=== PATIENT | female | born 1990 | race Two or more races ===

== ENCOUNTER 2017-02-14 08:39 | Emergency (ER) | payer MEDICAID, OTHER ==
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
[2017-02-14 10:48] VITALS: BP 105/65
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
== END 2017-02-14 11:11 | disposition home or self-care (01) ==
LOC: ER 08:39
DX: S06.0X9A Concussion with loss of consciousness of unspecified duration, initial encounter (principal); R51 Headache; V87.7XXA Person injured in collision between other specified motor vehicles (traffic), initial encounter
CPT/HCPCS: 70450; 99284

== ENCOUNTER → 2017-07-11 | Outpatient (CLI) | payer MEDICAID ==
[2017-07-11 22:17] LABS: CHLAM PCR NOT DETECTED (NOT DETECT)
== END ==
LOC: LAB 19:47
PROVIDERS: ATTEND Nurse Practitioner Acute Care
DX: N89.8 Other specified noninflammatory disorders of vagina (principal)
CPT/HCPCS: 87210; 87491; 87591

== ENCOUNTER → 2017-07-16 | Outpatient (CLI) | payer MEDICAID | LOC: LAB 20:54 | PROVIDERS: ATTEND Nurse Practitioner Acute Care | DX: N90.89 Other specified noninflammatory disorders of vulva and perineum (principal) | CPT/HCPCS: 87250 ==

== ENCOUNTER 2017-12-19 03:20 | Emergency (ER) | payer SELFPAY ==
[2017-12-19] MEDS ORDERED: KETOROLAC TROMETHAMINE INJ/PF 30 MG/1 ML SDV IV ONE (03:47)
[2017-12-19] MEDS ORDERED: ONDANSETRON HCL INJ/PF 4 MG/2 ML SDV IV ONE (03:47)
[2017-12-19] MEDS ORDERED: NORMAL SALINE 1000 ML 1,000 ML IV ONE (03:47)
[2017-12-19] MEDS ORDERED: KETOROLAC TROMETHAMINE INJ/PF 30 MG/1 ML SDV ONE (03:58)
[2017-12-19] MEDS ORDERED: ONDANSETRON HCL INJ/PF 4 MG/2 ML SDV ONE (03:59)
[2017-12-19 04:51] LABS: ALANINE AMINOTRANSFERASE 18 U/L (9-52); ALBUMIN 4.6 g/dL (3.5-5.0); ALKALINE PHOSPHATASE 73 U/L (38-126); ANION GAP 14 (5-19); ASPARTATE AMINO TRANSFERASE 14 U/L (14-36); BILIRUBIN,DIRECT 0.3 mg/dL (0.0-0.4); BILIRUBIN,TOTAL 0.4 mg/dL (0.2-1.3); BLOOD UREA NITROGEN 11 mg/dL (7-20); CARBON DIOXIDE 29 mmol/L (22-30); CHLORIDE 102 mmol/L (98-107); GLUCOSE 90 mg/dL (75-110); POTASSIUM 4.3 mmol/L (3.6-5.0); SODIUM 144.6 mmol/L (137-145); TOTAL PROTEIN 7.8 g/dL (6.3-8.2)
--- NOTE | 2017-12-19 07:19 | ER Document Report ---
ED General - General Chief Complaint: Abdominal Pain Stated Complaint: ABDOMINAL PAIN Time Seen by Provider: 12/19/17 03:45 Mode of Arrival: Ambulatory Information source: Patient Notes: Patient is a 27-year-old female who presents with complaint of right lower quadrant pain and pelvic pain. Patient reports that she has a history of bilateral ovarian cysts with a large cyst on the right side. Patient reports that she had pain for the last day now that is worsened overnight. Patient reports that she has had nausea without vomiting. Patient reports that she sees Dr. Mcgee for this. Patient reports a past medical history of endometriosis. TRAVEL OUTSIDE OF THE [place] IN LAST 30 DAYS: No - Related Data Allergies/Adverse Reactions: No Known Allergies Allergy (Verified 02/14/17 08:49) Past Medical History - General Information source: Patient - Social History Smoking Status: Never Smoker Cigarette use (# per day): No Chew tobacco use (# tins/day): No Smoking Education Provided: No Frequency of alcohol use: None Drug Abuse: None Family History: Reviewed & Not Pertinent Renal/ Medical History: Reports: Hx Ovarian Cysts, Other - Endometriosis. Denies: Hx Peritoneal Dialysis Review of Systems - Review of Systems Constitutional: No symptoms reported EENT: No symptoms reported Cardiovascular: No symptoms reported Respiratory: No symptoms reported Gastrointestinal: See HPI Genitourinary: No symptoms reported Female Genitourinary: See HPI Musculoskeletal: No symptoms reported Skin: No symptoms reported Hematologic/Lymphatic: No symptoms reported Neurological/Psychological: No symptoms reported Physical Exam - Vital signs Vitals: Temp Pulse Resp BP Pulse Ox 97.3 F 80 18 127/81 H 99 12/19/17 03:22 12/19/17 03:22 12/19/17 03:22 12/19/17 03:22 12/19/17 03:22 - Notes Notes: PHYSICAL EXAMINATION: GENERAL: Well-appearing, well-nourished and in no acute distress. HEAD: Atraumatic, normocephalic. EYES: Pupils equal round and reactive to light, extraocular movements intact, conjunctiva are normal. ENT: Nares patent, oropharynx clear without exudates. Moist mucous membranes. NECK: Normal range of motion, supple without lymphadenopathy LUNGS: Breath sounds clear to auscultation bilaterally and equal. No wheezes rales or rhonchi. HEART: Regular rate and rhythm without murmurs ABDOMEN: Soft, nontender, nondistended abdomen. No guarding, no rebound. No masses appreciated. Female : Pain to pelvic/suprapubic area. Musculoskeletal: Normal range of motion, no pitting or edema. No cyanosis. NEUROLOGICAL: Cranial nerves grossly intact. Normal speech, normal gait. Normal sensory, motor exams PSYCH: Normal mood, normal affect. SKIN: Warm, Dry, normal turgor, no rashes or lesions noted. Course - Re-evaluation Re-evalutation: Patient with significant past medical history of ovarian cyst. Patient has a copy of a ultrasound report from July 2017 on her phone which shows bilateral ovarian cysts with a large one on the right. Patient CBC is unremarkable, hCG is negative. Ultrasound reveals large right ovarian cyst of 7.67.57.0 cm and left ovarian cyst that is approximately 3.1 cm. No evidence of ovarian torsion or any other acute findings. Patient reports complete relief of pain after administration of Toradol IV. Patient being given some IV fluids and will be discharged home with close follow -up with OB. Patient agrees with this plan and agrees to call Dr. Mcgee later on today to set up an appointment for follow-up. - Vital Signs Vital signs: Temp Pulse Resp BP Pulse Ox 97.3 F 80 18 127/81 H 99 12/19/17 03:22 12/19/17 03:22 12/19/17 03:22 12/19/17 03:22 12/19/17 03:22 Discharge - Discharge Clinical Impression: Ovarian cyst Qualifiers: Laterality: right Qualified Code(s): N83.201 - Unspecified ovarian cyst, right side Condition: Stable Disposition: HOME, SELF-CARE Additional Instructions: Ovarian Cyst Your examination shows the presence of an ovarian cyst. This is a ball of fluid attached to the ovary. Ovarian cysts in women of child-bearing age are usually innocent. However, the cyst may cause pain when it grows or bursts. An innocent ovarian cyst will usually go away by itself. When the cyst becomes painful, you should rest. Pain medication may be required. Some women find a hot water bottle soothing. The pain usually resolves within one or two days. After menopause, an ovarian cyst may mean a tumor, and requires more aggressive evaluation -- usually surgery is recommended to remove or biopsy the cyst. A very large cyst requires evaluation at any age. Most cysts (even the innocent ones) require follow-up examination. Call the doctor or return at any time if the pain increases significantly, if you become faint, or if you experience vaginal bleeding. Prescriptions: Morphine Sulfate [Morphine Ir 15 Mg Tablet] 15 mg PO Q4H PRN #12 tablet PRN Reason: Ondansetron [Zofran Odt 4 mg Tablet] 1 - 2 tab PO Q4H PRN #30 tab.rapdis PRN Reason: For Nausea/Vomiting Referrals: TUSHAR MCGEE MD [EMER[facility]] - Follow up as needed
[2017-12-19 07:22] VITALS: BP 106/65
[2017-12-19 07:24] LABS: APPEARANCE,URINE CLEAR; BILIRUBIN,URINE NEGATIVE (NEGATIVE); COLOR,URINE YELLOW; GLUCOSE, URINE NEGATIVE (NEGATIVE); KETONES,URINE 20 mg/dL (NEGATIVE); LEUKOCYTE ESTERASE,URINE NEGATIVE (NEGATIVE); NITRITE,URINE NEGATIVE (NEGATIVE); PROTEIN,URINE NEGATIVE (NEGATIVE); URINE SPECIFIC GRAVITY 1.015
[2017-12-19 07:25] LABS: ABSOLUTE EOSINOPHILS # (AUTO) 0.1 10^3/uL (0.0-0.6); ABSOLUTE LYMPHOCYTES (AUTO) 1.9 10^3/uL (0.5-4.7); ABSOLUTE MONOCYTES (AUTO) 0.6 10^3/uL (0.1-1.4); ABSOLUTE NEUT (AUTO) 6.2 10^3/uL (1.7-8.2); BASOPHILS % (AUTO) 0.5 % (0-2); EOSINOPHILS % (AUTO) 0.9 % (0-6); HEMOGLOBIN 11.9 g/dL (12.0-15.5); LYMPHOCYTES % (AUTO) 21.5 % (13-45); MEAN CORPUSCULAR HEMOGLOBIN 30.1 pg (27.0-33.4); MEAN CORPUSCULAR HGB CONC 32.9 g/dL (32.0-36.0); MEAN CORPUSCULAR VOLUME 91 fl (80-97); MONOCYTES % (AUTO) 7.2 % (3-13); PLATELET COUNT 265 10^3/uL (150-450); RED BLOOD COUNT 3.95 10^6/uL (3.72-5.28); RED CELL DISTRIBUTION WIDTH 13.3 % (11.5-14.0); SEGMENTED NEUTROPHILS % (AUTO) 69.9 % (42-78); TOTAL CELLS COUNTED % (AUTO) 100 %; WHITE BLOOD COUNT 8.9 10^3/uL (4.0-10.5)
--- NOTE | 2017-12-19 07:53 | RADIOLOGY REPORT (SQ) ---
EXAM DESCRIPTION: U/S NON OB PEL TV W/DOPPLER CLINICAL HISTORY: 27 years, Female, RLQ Pain, history of ovarian cysts, nausea and vomiting COMPARISON: None. TECHNIQUE: Transvaginal LIMITATIONS: None. FINDINGS: 8.2 x 8.4 x 7.9 cm right ovary contains a 7.6 x 7.5 x 7.0 cm hypoechoic avascular homogeneous mass and questionable 1.5 cm adjacent Rokitansky nodule; differential diagnosis includes hemorrhagic cyst, endometrioma, and dermoid. 3.7 cm left ovary contains a 3.1 cm hypoechoic cystic component. Bilateral ovaries demonstrate vascularity. Moderate free pelvic fluid. 8.1 cm uterus, 1.3 cm thick endometrial stripe, and 1.8 cm cervical length are otherwise unremarkable. IMPRESSION: Indeterminate probably benign bilateral ovarian lesions measure up to 7.6 cm on the right and 3.1 cm on the left. Moderate free pelvic fluid. Differential diagnosis includes hemorrhagic cyst, endometrioma, and dermoid. There is increased risk for developing ovarian torsion. Ultrasound follow-up recommended in 6-12 weeks.
== END 2017-12-19 06:58 | disposition home or self-care (01) ==
LOC: ER 03:20
DX: N83.201 Unspecified ovarian cyst, right side (principal); R10.31 Right lower quadrant pain; R10.2 Pelvic and perineal pain
CPT/HCPCS: 36415; 76830; 80053; 81001; 81025; 85025; 93976; 99284

== ENCOUNTER 2018-03-25 07:02 | Emergency (ER) | payer MEDICAID ==
--- NOTE | 2018-03-25 08:04 | ER Document Report ---
ED General - General Chief Complaint: Abdominal Pain Stated Complaint: ABDOMINAL PAIN Time Seen by Provider: 03/25/18 08:04 Mode of Arrival: Ambulatory Information source: Patient TRAVEL OUTSIDE OF THE [place] IN LAST 30 DAYS: No - HPI Notes: 19-year-old female with medical history of ovarian cysts on her right ovary, behind her bladder and her left ovary as well as endometriosis presents today for complaints of sudden onset right pelvic pain that started at 10:00 last night, flared up again around 1 AM this morning. States pain is 8 out of 10, sharp and stabbing, worse with time, patient does take [id number] ibuprofen without relief. States pain does radiate to her back. Patient states she did have an ultrasound done yesterday of the pelvis outpatient which did show up for ovarian cysts. No free fluid. Patient is trying to have surgery outpatient for removal of endometriosis as well as her ovarian cysts with Conner Aguilera. Last menstrual period was March 10, 2018 has not been sexually active since that time. Denies any vaginal discharge. Denies fevers, chills, chest pain,palpitations, shortness of breath, dyspnea, nausea, vomiting, diarrhea, abdominal pain, hematuria,blurred vision, double vision, loss of vision, speech changes, LH, dizziness, syncope, headaches, wheezing, ST , URI, neck pain, weakness, bowel or bladder dysfunction, saddle anesthesia, numbness or tingling in bilateral upper or lower extremities equally, muscle paralysis, weakness in bilateral upper or lower extremities equally or rash. Denies IV drug use. - Related Data Allergies/Adverse Reactions: No Known Allergies Allergy (Verified 02/14/17 08:49) Past Medical History - General Information source: Patient, Relative - Social History Smoking Status: Unknown if Ever Smoked Family History: Reviewed & Not Pertinent Renal/ Medical History: Reports: Hx Ovarian Cysts. Denies: Hx Peritoneal Dialysis Review of Systems - Review of Systems Constitutional: No symptoms reported EENT: No symptoms reported Cardiovascular: No symptoms reported Respiratory: No symptoms reported Gastrointestinal: No symptoms reported Genitourinary: See HPI Female Genitourinary: No symptoms reported Musculoskeletal: No symptoms reported Skin: No symptoms reported Hematologic/Lymphatic: No symptoms reported Neurological/Psychological: No symptoms reported Physical Exam - Vital signs Vitals: Temp Pulse Resp BP Pulse Ox 97.8 F 96 20 140/87 H 100 03/25/18 07:02 08/14/18 07:02 03/25/18 07:02 03/25/18 07:02 03/25/18 07:02 - Notes Notes: PHYSICAL EXAMINATION: GENERAL: Well-appearing, well-nourished and in no acute distress. HEAD: Atraumatic, normocephalic. EYES: Pupils equal round and reactive to light, extraocular movements intact, conjunctiva are normal. ENT: Nares patent, oropharynx clear without exudates. Moist mucous membranes. NECK: Normal range of motion, supple without lymphadenopathy LUNGS: Breath sounds clear to auscultation bilaterally and equal. No wheezes rales or rhonchi. HEART: Regular rate and rhythm without murmurs ABDOMEN: Soft, nontender, nondistended abdomen. No guarding, no rebound. No masses appreciated. Female : External genitalia without erythema, exudate or discharge. Vaginal vault is without discharge. Cervix is of normal color without lesion. There is no bleeding noted. Uterus is noted to be of normal size and nontender. No cervical motion tenderness is seen. No masses are palpated. os closed, no adnexal tenderness or mass Musculoskeletal: Normal range of motion, no pitting or edema. No cyanosis. NEUROLOGICAL: Cranial nerves grossly intact. Normal speech, normal gait. Normal sensory, motor exams PSYCH: Normal mood, normal affect. SKIN: Warm, Dry, normal turgor, no rashes or lesions noted. Course - Re-evaluation Re-evalutation: 03/25/18 11:44 19-year-old female presents to the ED for evaluation of right pelvic pain, patient is being evaluated for endometriosis and ovarian cyst, she does have follow-up surgeon for cyst removal Conner Aguilera. Patient remains afebrile vitals stable and in the ED. On reevaluation pain reduced down to 3 out of 10. Pelvic examination unremarkable. CBC without leukocytosis, anemia. CMP negative for hepatic or renal dysfunction, no electrolyte disturbances. Urinalysis normal. Transvaginal pelvic shows a unchanged complex lesion to the right ovary which radiologist states could be an endometrioma or a dermoid. Noted unchanged complex cyst to left ovary, normal arterial vascular flow without evidence for torsion to bilateral ovaries. No free fluid noted. Discussed with patient that she needs to follow-up with [facility] [employer] as well as her surgeon. Low suspicion for acute appendicitis, bowel obstruction, acute cholecystitis, perforated diverticulitis, incarcerated hernia, pancreatitis, PID , perforated ulcer, ectopic , tubo-ovarian abscess or ovarian torsion, thus I consider the discharge disposition reasonable. Also, there is no evidence or peritonitis, sepsis, or toxicity. I have reevaluated this patient multiple times and no significant life threatening changes are noted. The patient and I have discussed the diagnosis and risks, and we agree with discharging home with close follow-up with the understanding that symptoms and presentations can change. We also discussed returning to the Emergency Department immediately if new or worsening symptoms occur. We have discussed the symptoms which are most concerning (e.g., bloody stool, fever, changing or worsening pain, vomiting) that necessitate immediate return. - Vital Signs Vital signs: Temp Pulse Resp BP Pulse Ox 98.1 F 96 22 H 105/65 100 03/25/18 12:01 03/25/18 07:02 03/25/18 12:01 03/25/18 12:01 03/25/18 12:01 - Laboratory Result Diagrams: 03/25/18 07:57 03/25/18 07:57 Laboratory results interpreted by me: 03/25/18 03/25/18 07:57 07:57 Hct 35.9 L Creatinine 0.45 L Discharge - Discharge Clinical Impression: Ovarian mass, right, Endometriosis Condition: Stable Disposition: HOME, SELF-CARE Instructions: Endometriosis ([facility]), Ovarian Cyst ([facility]) Additional Instructions: PELVIC PAIN: There are many causes of pain in the pelvic area. The cause could be the tubes, ovaries, uterus, intestines, appendix, pelvic muscles and connective tissue, or the urinary tract. The cause of your pelvic pain is not clear. However, it seems safe to treat you outside the hospital. If the pain sounds like a temporary problem, we sometimes wait to see if it goes away. Other patients may need additional tests, such as pelvic ultrasound or cultures. Conditions may change. Call us or come back for reexamination if any problems occur, such as: (1) Pain that becomes more severe, steady, or becomes concentrated in one specific area. Also, pain that is more severe with movement or coughing. (2) Vomiting that persists or becomes more frequent. (3) Blood in the vomitus, urine, or bowel movements. Blood in the stool may have a tarry or black appearance. (4) Shaking chills or fever greater than 100 degrees. (5) The abdomen becomes more distended or swollen. (6) Bowel movements cease. (7) Heavy vaginal bleeding. Her ultrasound showed a lesion on the right ovary which could be a result of endometriosis. They did see a cyst on the left ovary. Normal flow 1-year-old ovaries, no torsion was noted. Advised to follow-up with [facility] [employer] within the next 3 days. Apply heat 20 minutes on 20 minutes off several times a day, alternate between ibuprofen and Tylenol for pain control. FOLLOW-UP CARE: If you have been referred to a physician for follow-up care, call the physician s office for an appointment as you were instructed or within the next two days. If you experience worsening or a significant change in your symptoms, notify the physician immediately or return to the Emergency Department at any time for re-evaluation. Return immediately for any new or worsening symptoms. Follow up with primary care provider, call tomorrow to make followup appointment. Forms: Parent Work Note, Return to Work Referrals: CLAUDIA CASTELLANOS MD [ACTIVE STAFF] - Follow up in 3-5 days LUIS HASKINS MD [ACTIVE STAFF] - Follow up in 3-5 days RENETTA BUCKLEY MD [[facility]] - Follow up as needed
[2018-03-25] MEDS ORDERED: KETOROLAC TROMETHAMINE INJ/PF 30 MG/1 ML SDV IV ONE (08:07)
[2018-03-25] MEDS ORDERED: MORPHINE SULFATE 10 MG/ML INJ IV ONE (08:13)
[2018-03-25] MEDS ORDERED: NORMAL SALINE 1000 ML 1,000 ML IV ONE (08:14)
[2018-03-25 08:22] LABS: ABSOLUTE EOSINOPHILS # (AUTO) 0.1 10^3/uL (0.0-0.6); ABSOLUTE LYMPHOCYTES (AUTO) 1.6 10^3/uL (0.5-4.7); ABSOLUTE MONOCYTES (AUTO) 0.5 10^3/uL (0.1-1.4); ABSOLUTE NEUT (AUTO) 5.6 10^3/uL (1.7-8.2); BASOPHILS % (AUTO) 0.5 % (0-2); EOSINOPHILS % (AUTO) 1.5 % (0-6); HEMATOCRIT 35.9 % (36.0-47.0); LYMPHOCYTES % (AUTO) 20.4 % (13-45); MEAN CORPUSCULAR HEMOGLOBIN 29.9 pg (27.0-33.4); MEAN CORPUSCULAR HGB CONC 33.3 g/dL (32.0-36.0); MEAN CORPUSCULAR VOLUME 90 fl (80-97); PLATELET COUNT 291 10^3/uL (150-450); RED BLOOD COUNT 4.01 10^6/uL (3.72-5.28); SEGMENTED NEUTROPHILS % (AUTO) 71.6 % (42-78); TOTAL CELLS COUNTED % (AUTO) 100 %; WHITE BLOOD COUNT 7.8 10^3/uL (4.0-10.5)
[2018-03-25 08:48] LABS: ALANINE AMINOTRANSFERASE 29 U/L (9-52); ALBUMIN 4.7 g/dL (3.5-5.0); ALKALINE PHOSPHATASE 92 U/L (38-126); ANION GAP 13 (5-19); ASPARTATE AMINO TRANSFERASE 28 U/L (14-36); BILIRUBIN,DIRECT 0.3 mg/dL (0.0-0.4); BILIRUBIN,TOTAL 0.5 mg/dL (0.2-1.3); BLOOD UREA NITROGEN 16 mg/dL (7-20); CALCIUM 9.6 mg/dL (8.4-10.2); CARBON DIOXIDE 24 mmol/L (22-30); CHLORIDE 105 mmol/L (98-107); GLUCOSE 92 mg/dL (75-110); LIPASE 51.3 U/L (23-300); POTASSIUM 4.3 mmol/L (3.6-5.0); SODIUM 142.2 mmol/L (137-145); TOTAL PROTEIN 8.1 g/dL (6.3-8.2)
[2018-03-25 09:32] LABS: T.VAGINALIS (WET MOUNT) NO TRICHOMONAS SEEN
[2018-03-25 09:33] LABS: WBCS (WET MOUNT) 2+ WBCS SEEN; YEAST (WET MOUNT) NO YEAST SEEN
[2018-03-25 11:06] LABS: GON PCR NOT DETECTED (NOT DETECT)
[2018-03-25 11:07] LABS: CHLAM PCR NOT DETECTED (NOT DETECT)
[2018-03-25 11:17] LABS: APPEARANCE,URINE CLEAR; BILIRUBIN,URINE NEGATIVE (NEGATIVE); COLOR,URINE YELLOW; GLUCOSE, URINE NEGATIVE (NEGATIVE); KETONES,URINE NEGATIVE (NEGATIVE); LEUKOCYTE ESTERASE,URINE NEGATIVE (NEGATIVE); NITRITE,URINE NEGATIVE (NEGATIVE); PROTEIN,URINE NEGATIVE (NEGATIVE); URINE SPECIFIC GRAVITY 1.012; UROBILINOGEN,URINE NEGATIVE mg/dL (<2.0)
--- NOTE | 2018-03-25 11:22 | RADIOLOGY REPORT (SQ) ---
EXAM DESCRIPTION: U/S NON OB PEL TV W/DOPPLER COMPLETED DATE/TIME: 03/25/2018 10:58 am REASON FOR STUDY: pelvic pain w/ hx of cyst COMPARISON: 12/19/2017 TECHNIQUE: Dynamic and static grayscale images acquired of the pelvis via transvaginal approach and recorded on PACS. Additional selected color Doppler and spectral images recorded. LIMITATIONS: None. FINDINGS: UTERUS: Contour normal. No mass. ENDOMETRIAL STRIPE: No focal or generalized thickening. No masses. CERVIX: No nabothian cysts. RIGHT OVARY AND DOPPLER: Well-circumscribed homogeneous hypoechoic lesion right ovary with mural calc ification total measurements 7.8 x 6.8 x 7.9 cm. No internal flow on color Doppler. Normal arterial vascular flow without evidence for torsion. LEFT OVARY AND DOPPLER: Well-circumscribed anechoic lesion measuring 3.5 x 3.4 x 3.3 cm with single t hin septation. Her current flow. Normal arterial vascular flow without evidence for torsion. FREE FLUID: Small amount adjacent to the right ovary. OTHER: No other significant finding. MEASUREMENTS: UTERUS: 8.9 x 5.2 x 5.4 cm ENDOMETRIAL STRIPE: 7 mm RIGHT OVARY: 2.1 x 1.5 x 1.4 cm LEFT OVARY: 5.7 x 2.9 x 4.2 cm IMPRESSION: Unchanged complex lesion right ovary, could be an endometrioma or dermoid. Unchanged co mplex cyst left ovary. TECHNICAL DOCUMENTATION: JOB ID: [id number] [employer]- All Rights Reserved Rev-12/27 Reading location - IP/workstation name: [email or web address]
[2018-03-25 12:17] VITALS: BP 105/65
== END 2018-03-25 12:17 | disposition home or self-care (01) ==
LOC: ER 07:02
DX: N80.9 Endometriosis, unspecified (principal); N83.202 Unspecified ovarian cyst, left side; R10.2 Pelvic and perineal pain
CPT/HCPCS: 99284; 96361; 96374; 96375; 36415; 87210; 83690; 84703; 85025; 80053; 81001; 87491; 87591; 76830; 93976; J1885; J2270; J7030

== ENCOUNTER 2018-04-12 09:39 | Emergency (ER) | payer MEDICAID ==
[2018-04-12] MEDS ORDERED: NORMAL SALINE 1000 ML 1,000 ML IV ONE (09:59)
[2018-04-12] MEDS ORDERED: KETOROLAC TROMETHAMINE INJ/PF 30 MG/1 ML SDV IV ONE (09:59)
[2018-04-12] MEDS ORDERED: ONDANSETRON HCL INJ/PF 4 MG/2 ML SDV IV ONE (09:59)
--- NOTE | 2018-04-12 10:01 | ER Document Report ---
ED Medical Screen (RME) - General Chief Complaint: Abdominal Pain Stated Complaint: R ABDOMINAL PAIN Time Seen by Provider: 04/12/18 09:53 TRAVEL OUTSIDE OF THE [place] IN LAST 30 DAYS: No - HPI Notes: 04/12/18 10:00 History of ovarian cyst ovarian mass followed by [facility] [employer] [facility] has not yet followed up with oncology coming in for increasing pain due to her mass - Related Data Allergies/Adverse Reactions: No Known Allergies Allergy (Verified 04/12/18 09:43) Past Medical History Renal/ Medical History: Reports: Hx Ovarian Cysts. Denies: Hx Peritoneal Dialysis Past Surgical History: Reports: Hx Gynecologic Surgery Review of Systems - Review of Systems Gastrointestinal: Abdominal pain, Nausea Physical Exam - Vital signs Vitals: Temp Pulse BP Pulse Ox 97.9 F 116 H 141/108 H 100 04/12/18 09:44 04/12/18 09:44 04/12/18 09:44 04/12/18 09:44 - Respiratory Respiratory status: No respiratory distress, Retractions Breath sounds: Normal Chest palpation: Normal - Cardiovascular Rhythm: Regular Heart sounds: Normal auscultation Course - Vital Signs Vital signs: Temp Pulse Resp BP Pulse Ox 97.9 F 116 H 141/108 H 100 04/12/18 09:44 04/12/18 09:44 04/12/18 09:44 04/12/18 09:44
[2018-04-12 10:19] LABS: ABSOLUTE BASOPHILS # (AUTO) 0.1 10^3/uL (0.0-0.2); ABSOLUTE EOSINOPHILS # (AUTO) 0.1 10^3/uL (0.0-0.6); ABSOLUTE LYMPHOCYTES (AUTO) 1.8 10^3/uL (0.5-4.7); ABSOLUTE MONOCYTES (AUTO) 0.6 10^3/uL (0.1-1.4); ABSOLUTE NEUT (AUTO) 6.6 10^3/uL (1.7-8.2); BASOPHILS % (AUTO) 0.6 % (0-2); EOSINOPHILS % (AUTO) 0.8 % (0-6); HEMATOCRIT 35.3 % (36.0-47.0); HEMOGLOBIN 11.6 g/dL (12.0-15.5); LYMPHOCYTES % (AUTO) 19.8 % (13-45); MEAN CORPUSCULAR HEMOGLOBIN 29.4 pg (27.0-33.4); MEAN CORPUSCULAR HGB CONC 32.8 g/dL (32.0-36.0); MEAN CORPUSCULAR VOLUME 90 fl (80-97); MONOCYTES % (AUTO) 6.8 % (3-13); PLATELET COUNT 306 10^3/uL (150-450); RED BLOOD COUNT 3.95 10^6/uL (3.72-5.28); RED CELL DISTRIBUTION WIDTH 13.6 % (11.5-14.0); TOTAL CELLS COUNTED % (AUTO) 100 %; WHITE BLOOD COUNT 9.2 10^3/uL (4.0-10.5)
[2018-04-12 10:45] LABS: ANION GAP 11 (5-19); BLOOD UREA NITROGEN 13 mg/dL (7-20); CARBON DIOXIDE 32 mmol/L (22-30); CHLORIDE 103 mmol/L (98-107); GLUCOSE 90 mg/dL (75-110); POTASSIUM 4.4 mmol/L (3.6-5.0); SODIUM 145.6 mmol/L (137-145)
--- NOTE | 2018-04-12 11:22 | RADIOLOGY REPORT (SQ) ---
EXAM DESCRIPTION: U/S NON OB PEL TV W/DOPPLER COMPLETED DATE/TIME: 04/12/2018 11:04 am REASON FOR STUDY: hx of r/l ovarian mass eval torsion COMPARISON: 03/25/2018. 12/19/2017. TECHNIQUE: Dynamic and static grayscale images acquired of the pelvis via transvaginal approach and recorded on PACS. Additional selected color Doppler and spectral images recorded. LIMITATIONS: None. FINDINGS: UTERUS: Contour normal. No mass. ENDOMETRIAL STRIPE: No focal or generalized thickening. No masses. CERVIX: No nabothian cysts. RIGHT OVARY AND DOPPLER: Large hypoechoic nonvascular mass measures up to 8 cm. Relatively uniform i nternal architecture. No suggestion of torsion. LEFT OVARY AND DOPPLER: Hypoechoic similar appearing mass in the left ovary measures 4 cm. There is also a 4 cm adjacent simple cyst. No evidence of torsion. FREE FLUID: None noted. OTHER: No other significant finding. MEASUREMENTS: UTERUS: 9 x 5 x 7 cm ENDOMETRIAL STRIPE: 1.1 cm RIGHT OVARY: 10 x 8 x 10 cm LEFT OVARY: 9 x 4 x 6 cm IMPRESSION: Bilateral complex appearing ovarian masses. Lesions look larger. No overt torsion, but surgical consultation is warranted given progression. Followup of asymptomatic indeterminate ovarian cysts detected by ultrasound in PREMENOPAUSAL patient s Cyst with findings suggestive of, but not classic for, hemorrhagic cyst, endometrioma or dermoid: *6-12 week followup US; if not a resolving hemorrhagic cyst, continued US or MRI followup; if endomet rioma or dermoid still not confirmed, consider surgical consultation Note: If cyst is clinically symptomatic or otherwise concerning, other followup may be warranted. Based on recommendations of the Society for Radiologists in Ultrasound Consensus Conference Statement 2010 on management of asymptomatic ovarian and other adnexal cysts imaged at ultrasound. TECHNICAL DOCUMENTATION: JOB ID: [id number] [employer]- All Rights Reserved Rev-12/27 Reading location - IP/workstation name: [email or web address] [email or web address]
[2018-04-12 11:23] LABS: APPEARANCE,URINE CLEAR; BILIRUBIN,URINE NEGATIVE (NEGATIVE); COLOR,URINE YELLOW; GLUCOSE, URINE NEGATIVE (NEGATIVE); KETONES,URINE NEGATIVE (NEGATIVE); LEUKOCYTE ESTERASE,URINE NEGATIVE (NEGATIVE); NITRITE,URINE NEGATIVE (NEGATIVE); PROTEIN,URINE NEGATIVE (NEGATIVE); URINE SPECIFIC GRAVITY 1.012; UROBILINOGEN,URINE NEGATIVE mg/dL (<2.0)
--- NOTE | 2018-04-12 12:16 | ER Document Report ---
ED General - General Chief Complaint: Abdominal Pain Stated Complaint: R ABDOMINAL PAIN Time Seen by Provider: 04/12/18 09:53 Notes: 19-year-old female patient to the emergency department chief complaint of lower pelvic pain. Patient has a long-standing history of severe endometriosis. Followed by local GAS PLANT WORKER, Dr. Mcgee. Has had multiple pelvic ultrasounds and worsening lesions on bilateral ovaries right greater than the left. Patient continues to have difficulty with her pain management. Was scheduled to see a GAS PLANT WORKER/oncologist in [place] but there has been some issues getting her scheduled. Having some mild nausea. Also having some numbness going down the top of her right leg. TRAVEL OUTSIDE OF THE [place] IN LAST 30 DAYS: No - HPI Onset/Duration: Worse Quality of pain: Cramping, Throbbing Severity: Moderate Pain Level: 3 - Related Data Allergies/Adverse Reactions: No Known Allergies Allergy (Verified 04/12/18 09:43) Past Medical History - General Information source: Patient - Social History Smoking Status: Never Smoker Frequency of alcohol use: None Drug Abuse: None Lives with: Family Family History: Reviewed & Not Pertinent Patient has suicidal ideation: No Patient has homicidal ideation: No Renal/ Medical History: Reports: Hx Ovarian Cysts, Other - Endometriosis. Denies: Hx Peritoneal Dialysis Past Surgical History: Reports: Hx Gynecologic Surgery Review of Systems - Review of Systems Constitutional: denies: Fever, Malaise, Other EENT: denies: Eye pain, Difficulty swallowing, Throat swelling Cardiovascular: denies: Chest pain, Palpitations, Heart racing Respiratory: denies: Cough, Hurts to breathe, Short of breath, Wheezing Gastrointestinal: Abdominal pain, Nausea. denies: Diarrhea, Vomiting Genitourinary: Other - Pain, endometriosis. denies: Burning, Dysuria, Discharge Female Genitourinary: Other - [place] this, pelvic cramping Musculoskeletal: Back pain. denies: Muscle pain, Muscle stiffness Skin: denies: Dryness, Lesions, Lumps, Rash Hematologic/Lymphatic: denies: Anemia, Blood clots, Easy bleeding, Easy bruising Neurological/Psychological: Numbness. denies: Confusion, Weakness Physical Exam - Vital signs Vitals: Temp Pulse BP Pulse Ox 97.9 F 116 H 141/108 H 100 04/12/18 09:44 04/12/18 09:44 04/12/18 09:44 04/12/18 09:44 Interpretation: Normal - General General appearance: Appears well, Alert - HEENT Head: Normocephalic, Atraumatic Eyes: Normal Pupils: PERRL - Respiratory Respiratory status: No respiratory distress Chest status: Nontender Breath sounds: Normal Chest palpation: Normal - Cardiovascular Rhythm: Regular Heart sounds: Normal auscultation Murmur: No - Abdominal Inspection: Normal Distension: No distension Bowel sounds: Normal Tenderness: Nontender Organomegaly: No organomegaly - Back Back: Normal, Nontender - Extremities General upper extremity: Normal inspection, Nontender, Normal color, Normal ROM , Normal temperature General lower extremity: Normal inspection, Nontender, Normal color, Normal ROM , Normal temperature, Normal weight bearing. No: Puneet's sign - Neurological Neuro grossly intact: Yes Cognition: Normal Orientation: AAOx4 [place] Coma Scale Eye Opening: Spontaneous [place] Coma Scale Verbal: Oriented [place] Coma Scale Motor: Obeys Commands Zeinab Coma Scale Total: 15 Speech: Normal Motor strength normal: LUE, RUE, LLE, RLE Sensory: Normal - Psychological Associated symptoms: Normal affect, Normal mood - Skin Skin Temperature: Warm Skin Moisture: Dry Skin Color: Normal Course - Re-evaluation Re-evalutation: 04/12/18 12:40 Ultrasound is worsening bilateral ovarian cyst. No evidence of torsion. Consulted with patient's information broker. I was initially going to get a CT scan of the abdomen and pelvis however her doctor does not want this performed. I will follow the wishes of her GAS PLANT WORKER who knows her the best. She has an extensive relationship with this provider and this provider that she is seen as an outpatient is going to follow her up shortly. At this time her specialist recommends pain management and she will call her on Saturday and get her seen by the specialist surgeon in [place] as soon as possible. Patient has been advised that in the event she has worsening pain untreated by with the pain medications we have provided or for any worsening symptoms or concerns that she should return immediately. CT scan was canceled just prior to her receiving 04/12/18 12:41 Laboratory 04/12/18 04/12/18 04/12/18 10:08 10:08 11:00 WBC 9.2 RBC 3.95 Hgb 11.6 L Hct 35.3 L MCV 90 MCH 29.4 MCHC 32.8 RDW 13.6 Plt Count 306 Seg Neutrophils % 72.0 Lymphocytes % 19.8 Monocytes % 6.8 Eosinophils % 0.8 Basophils % 0.6 Absolute Neutrophils 6.6 Absolute Lymphocytes 1.8 Absolute Monocytes 0.6 Absolute Eosinophils 0.1 Absolute Basophils 0.1 Sodium 145.6 H Potassium 4.4 Chloride 103 Carbon Dioxide 32 H Anion Gap 11 BUN 13 Creatinine 0.51 L Est GFR ( Amer) > 60 Est GFR (Non-Af Amer) > 60 Glucose 90 Calcium 10.0 Beta HCG, Quant < 2.39 Total Beta HCG NEGATIVE Urine Color YELLOW Urine Appearance CLEAR Urine pH 8.0 Ur Specific [place] 1.012 Urine Protein NEGATIVE Urine Glucose (UA) NEGATIVE Urine Ketones NEGATIVE Urine Blood SMALL H Urine Nitrite NEGATIVE Urine Bilirubin NEGATIVE Urine Urobilinogen NEGATIVE Ur Leukocyte Esterase NEGATIVE Urine WBC (Auto) 1 Urine RBC (Auto) 10 Squamous Epi Cells Auto 1 Urine Mucus (Auto) RARE Urine Ascorbic Acid NEGATIVE Transvaginal US 04/12/18 09:59 IMPRESSION: Bilateral complex appearing ovarian masses. Lesions look larger. No overt torsion, but surgical consultation is warranted given progression. Followup of asymptomatic indeterminate ovarian cysts detected by ultrasound in PREMENOPAUSAL patients Cyst with findings suggestive of, but not classic for, hemorrhagic cyst, endometrioma or dermoid: *6-12 week followup US; if not a resolving hemorrhagic cyst, continued US or MRI followup; if endometrioma or dermoid still not confirmed, consider surgical consultation Note: If cyst is clinically symptomatic or otherwise concerning, other followup may be warranted. Based on recommendations of the Society for Radiologists in Ultrasound Consensus Conference Statement 2010 on management of asymptomatic ovarian and other adnexal cysts imaged at ultrasound. - Vital Signs Vital signs: Temp Pulse Resp BP Pulse Ox 97.9 F 116 H 141/108 H 100 04/12/18 09:44 04/12/18 09:44 04/12/18 09:44 04/12/18 09:44 - Laboratory Result Diagrams: 04/12/18 10:08 04/12/18 10:08 Laboratory results interpreted by me: 04/12/18 04/12/18 04/12/18 10:08 10:08 11:00 Hgb 11.6 L Hct 35.3 L Sodium 145.6 H Carbon Dioxide 32 H Creatinine 0.51 L Urine Blood SMALL H Discharge - Discharge Clinical Impression: Endometriosis, severe Condition: Good Disposition: HOME, SELF-CARE Instructions: Endometriosis ([facility]) Additional Instructions: Please speak with Dr. Mcgee soon as possible. In the event that your pain is unbearable or you have any worsening symptoms please return. Prescriptions: Docusate Sodium [Colace 100 mg Capsule] 100 mg PO BID 15 Days #30 capsule Hydrocodone/Acetaminophen [[place] 5-325 mg Tablet] 1 tab PO QID PRN 5 Days #20 tablet PRN Reason: Meloxicam [Mobic] 7.5 mg PO DAILY 14 Days #14 tablet Ondansetron [Zofran Odt 4 mg Tablet] 1 - 2 tab PO Q4H PRN #15 tab.rapdis PRN Reason: For Nausea/Vomiting Forms: Return to Work Referrals: TUSHAR MCGEE MD [EMERITUS] - 04/15/18 8:00 am
[2018-04-12] MEDS ORDERED: FENTANYL CITRATE INJ/PF 100 MCG/2 ML AMPUL IV ONE (12:17)
[2018-04-12 13:13] VITALS: BP 120/70
== END 2018-04-12 13:17 | disposition home or self-care (01) ==
LOC: ER 09:39
DX: N80.9 Endometriosis, unspecified (principal); R10.2 Pelvic and perineal pain; R11.0 Nausea; R20.0 Anesthesia of skin
CPT/HCPCS: 99284; 96361; 96374; 96375; 36415; 84702; 85025; 80048; 81001; 76830; 93976; J3010; J1885; J2405; J7030

== ENCOUNTER 2018-05-23 07:32 | Emergency (ER) | payer MEDICAID ==
[2018-05-23 08:24] LABS: APPEARANCE,URINE SLIGHTLY-CLOUDY; BILIRUBIN,URINE NEGATIVE (NEGATIVE); COLOR,URINE YELLOW; GLUCOSE, URINE NEGATIVE (NEGATIVE); KETONES,URINE NEGATIVE (NEGATIVE); LEUKOCYTE ESTERASE,URINE NEGATIVE (NEGATIVE); NITRITE,URINE NEGATIVE (NEGATIVE); PROTEIN,URINE NEGATIVE (NEGATIVE); URINE SPECIFIC GRAVITY 1.026
[2018-05-23 09:14] LABS: T.VAGINALIS (WET MOUNT) NO TRICHOMONAS SEEN; WBCS (WET MOUNT) 1+ WBCS SEEN; YEAST (WET MOUNT) NO YEAST SEEN
[2018-05-23 09:15] LABS: RBCS (WET MOUNT) RARE RBCS SEEN
--- NOTE | 2018-05-23 09:38 | RADIOLOGY REPORT (SQ) ---
EXAM DESCRIPTION: U/S NON OB PEL TV W/DOPPLER COMPLETED DATE/TIME: 05/23/2018 9:18 am REASON FOR STUDY: pelvic pain COMPARISON: Pelvic ultrasound dated 04/12/2018 TECHNIQUE: Dynamic and static grayscale images acquired of the pelvis via transvaginal approach and recorded on PACS. Additional selected color Doppler and spectral images recorded. LIMITATIONS: None. FINDINGS: UTERUS: Contour normal. No mass. ENDOMETRIAL STRIPE: No focal or generalized thickening. No masses. CERVIX: No nabothian cysts. RIGHT OVARY AND DOPPLER: Tthe previously described complex appearing ovarian mass is again identified measuring 8.4 x 7.9 benign 9.0 cm on the current study. Normal arterial vascular flow without eviden ce for torsion. LEFT OVARY AND DOPPLER: The previously described complex appearing ovarian mass is again identified m easuring 5.2 x 3.8 x 4.0 cm on the current study. Normal arterial vascular flow without evidence for torsion. FREE FLUID: None noted. OTHER: No other significant finding. MEASUREMENTS: UTERUS: 8.6 x 4.7 x 6.9 cm ENDOMETRIAL STRIPE: 11 mm RIGHT OVARY: 9.8 x 9.2 x 10.0 cm LEFT OVARY: 6.8 x 4.8 x 5.2 cm IMPRESSION: Eft the previously described bilateral complex appearing ovarian masses are again identi fied measuring slightly larger on the current study. Clinical correlation and further followup is re commended. Surgical consultation is recommended. COMMENT: Followup of asymptomatic indeterminate ovarian cysts detected by ultrasound in PREMENOPAUS [place] patients Cyst with findings suggestive of, but not classic for, hemorrhagic cyst, endometrioma or dermoid: *6-12 week followup US; if not a resolving hemorrhagic cyst, continued US or MRI followup; if endomet rioma or dermoid still not confirmed, consider surgical consultation Single thin septation or focal wall calcification: *Same as for benign cyst, based on size Multiple septations: *Consider surgical consultation Nodule in a cyst: *No blood flow in nodule: MRI or surgical consultation *Blood flow in nodule: surgical consultation Note: If cyst is clinically symptomatic or otherwise concerning, other followup may be warranted. Based on recommendations of the Society for Radiologists in Ultrasound Consensus Conference Statement 2010 on management of asymptomatic ovarian and other adnexal cysts imaged at ultrasound. . TECHNICAL DOCUMENTATION: JOB ID: [id number] [employer]- All Rights Reserved Rev Reading location - IP/workstation name: [email or web address]
[2018-05-23] MEDS ORDERED: KETOROLAC TROMETHAMINE 60 MG/2 ML SDV IM ONE (09:49)
--- NOTE | 2018-05-23 11:40 | ER Document Report ---
ED General - General Chief Complaint: Pelvic Pain Stated Complaint: PELVIC PAIN Time Seen by Provider: 05/23/18 08:23 TRAVEL OUTSIDE OF THE [place] IN LAST 30 DAYS: No - Related Data Allergies/Adverse Reactions: No Known Allergies Allergy (Verified 05/23/18 07:33) Past Medical History - Social History Smoking Status: Never Smoker Chew tobacco use (# tins/day): No Frequency of alcohol use: None Drug Abuse: None Family History: Reviewed & Not Pertinent Patient has suicidal ideation: No Patient has homicidal ideation: No Renal/ Medical History: Reports: Hx Ovarian Cysts. Denies: Hx Peritoneal Dialysis Past Surgical History: Reports: Hx Gynecologic Surgery Physical Exam - Vital signs Vitals: Temp Pulse Resp BP Pulse Ox 97.8 F 88 20 132/80 H 99 05/23/18 07:36 05/23/18 07:36 05/23/18 07:36 05/23/18 07:36 05/23/18 07:36 Course - Re-evaluation Re-evalutation: 05/23/18 11:48 Ultrasound is worsening bilateral ovarian cyst. No evidence of torsion. Consulted with patient's organ installer. I was initially going to get a CT scan of the abdomen and pelvis however her doctor does not want this performed. I will follow the wishes of her SWING GRINDER who knows her the best. She has an extensive relationship with this provider and this provider that she is seen as an outpatient is going to follow her up shortly. At this time her specialist recommends pain management and she will call her on Saturday and get her seen by the specialist surgeon in [place] as soon as possible. Patient has been advised that in the event she has worsening pain untreated by with the pain medications we have provided or for any worsening symptoms or concerns that she should return immediately. CT scan was canceled just prior to her receiving - Vital Signs Vital signs: Temp Pulse Resp BP Pulse Ox 97.8 F 88 20 132/80 H 99 05/23/18 07:36 05/23/18 07:36 05/23/18 07:36 05/23/18 07:36 05/23/18 07:36 - Laboratory Laboratory results interpreted by me: 05/23/18 08:08 Urine Urobilinogen 2.0 H Discharge - Discharge Clinical Impression: Ovarian mass, left, Ovarian mass, right Condition: Good Disposition: HOME, SELF-CARE Instructions: Pelvic Pain ([facility]) Prescriptions: Hydrocodone/Acetaminophen [[place] 5-325 mg Tablet] 1 tab PO Q4 #10 tablet Ondansetron [Zofran Odt 4 mg Tablet] 1 tab PO Q4H PRN #15 tab.rapdis PRN Reason: For Nausea/Vomiting Referrals: TUSHAR AVILES MD [EMERITUS] - Follow up as needed
[2018-05-23 11:59] VITALS: BP 115/74
[2018-05-23 12:39] LABS: CHLAM PCR NOT DETECTED (NOT DETECT)
[2018-05-23 12:41] LABS: GON PCR NOT DETECTED (NOT DETECT)
== END 2018-05-23 12:08 | disposition home or self-care (01) ==
LOC: ER 07:32
DX: N83.202 Unspecified ovarian cyst, left side (principal); N83.201 Unspecified ovarian cyst, right side; R10.2 Pelvic and perineal pain
CPT/HCPCS: 99284; 96372; 87210; 81025; 81001; 87491; 87591; 76830; 93976; J1885

== ENCOUNTER 2018-09-08 07:39 | Day surgery (SDC) | payer MEDICAID ==
[~2018-09-08 07:39] MED LIST: PROPOFOL INJ 200 MG/20 ML VIAL IV ONE
[2018-09-08 09:07] VITALS: BP 113/50
--- NOTE | 2018-09-08 13:01 | Operative Report ---
Operative Report DATE OF SURGERY: 09/08/18 Operative Report: The risks, benefits and alternatives of the procedure including the risk of bleeding, perforation requiring surgery have been explained to the patient in detail and informed consent has been obtained. The patient has been back to the endoscopy suite and placed in the left, lateral decubital position. Timeout was called. Propofol medication is administered. A rectal examination is done which did not reveal any masses, tears or fissures. An Olympus videoscope was introduced into the patient's rectum. The scope was then carefully advanced all the way to the cecum. The cecum was identified by the usual anatomical landmarks including the ileocecal valve as well as the appendiceal office. Photodocumentation is obtained. The scope was then sequentially pulled back via the various segments of the colon including the ascending colon, hepatic flexu re, transverse colon, splenic flexure, descending colon and finally into the rectosigmoid portions of the colon. Retroflexion maneuver was performed. PREOPERATIVE DIAGNOSIS: Change in bowel habits POSTOPERATIVE DIAGNOSIS: Mild inflammation noted on the right-hand side of the colon status post biopsy OPERATION: Colonoscopy with biopsy SURGEON: ESA CERDA ANESTHESIA: LMAC TISSUE REMOVED OR ALTERED: As noted above. COMPLICATIONS: None. ESTIMATED BLOOD LOSS: None. INTRAOPERATIVE FINDINGS: As noted above. PROCEDURE: Patient tolerated the procedure well. No immediate postprocedure complications are noted. Patient discharged in good condition. Discharge date 09/08/2018. Discharge diet: Regular. Discharge activity: Regular. 2-3-week follow-up to discuss findings. Patient is instructed to call the office or proceed to the emergency room should there be any further problems or questions. I will wait to pathology.
== END 2018-09-08 09:09 | disposition home or self-care (01) ==
LOC: END 07:39
PROVIDERS: ATTEND Internal Medicine Gastroenterology
DX: K52.9 Noninfective gastroenteritis and colitis, unspecified (principal); Z87.891 Personal history of nicotine dependence
CPT/HCPCS: 45380; 88305 ×2; J2704

== ENCOUNTER → 2018-11-14 | Outpatient (CLI) | payer MEDICAID | LOC: OD 09:54 | PROVIDERS: ATTEND Nurse Practitioner Psychiatric/Mental Health | DX: F33.1 Major depressive disorder, recurrent, moderate (principal) | CPT/HCPCS: 36415; 84443 ==